=== PATIENT | male | born 1980 | race Hispanic/Latino ===

== ENCOUNTER 2017-04-10 20:34 | Emergency (ER) | payer SELFPAY ==
[2017-04-10] MEDS ORDERED: LIDOCAINE HCL 1% 20 ML VIAL ONE (21:30)
== END 2017-04-10 22:01 | disposition home or self-care (01) ==
LOC: EDH 20:34
DX: L02.211 Cutaneous abscess of abdominal wall (principal); L02.212 Cutaneous abscess of back [any part, except buttock and flank]
CPT/HCPCS: 10061

== ENCOUNTER 2017-07-23 18:34 | Emergency (ER) | payer SELFPAY ==
[2017-07-23] MEDS ORDERED: SULFAMETHOX-TMP DS 800/160 TAB ONE (19:46)
[2017-07-23] MEDS ORDERED: IBUPROFEN 600 MG TABLET ONE (19:47)
== END 2017-07-23 20:07 | disposition home or self-care (01) ==
LOC: EDH 18:34
DX: L02.211 Cutaneous abscess of abdominal wall (principal); Z98.890 Other specified postprocedural states

== ENCOUNTER 2021-05-31 20:29 | Emergency (ER) | payer OTHER ==
[~2021-05-31] VITALS: Ht 175.3 cm; Wt 163.1 kg
[2021-05-31 20:30] VITALS: BP 124/56
[2021-05-31] MEDS ORDERED: ACYC-138 PO (20:48)
[2021-05-31] MEDS ORDERED: NAPR500T6 PO (20:48)
[2021-05-31] MEDS ORDERED: TRAM50TA2 PO (20:58)
== END 2021-05-31 21:48 | disposition home or self-care (01) ==
LOC: EDH 20:29
DX: B02.9 Zoster without complications (principal); M79.672 Pain in left foot; Z79.1 Long term (current) use of non-steroidal anti-inflammatories (NSAID); Z86.16 Personal history of COVID-19
CPT/HCPCS: 73650; 93005

== ENCOUNTER 2021-08-08 15:12 | Emergency (ER) | payer OTHER ==
[~2021-08-08] VITALS: Ht 175.3 cm; Wt 161.9 kg
[~2021-08-08 15:12] MED LIST: ACYC-138 PO; NAPR500T6 PO; TRAM50TA2 PO
[2021-08-08 16:17] LABS: APPEARANCE,URINE Clear (CLEAR); BILIRUBIN,URINE Negative (NEGATIVE); COLOR,URINE Dark Yellow (YELLOW); GLUCOSE, URINE (UA) Negative (NEGATIVE); KETONES,URINE 15 mg/dL (NEGATIVE); LEUKOCYTE ESTERASE ,URINE Trace (NEGATIVE); NITRATE,URINE Negative (NEGATIVE); OCCULT BLOOD,URINE Negative (NEGATIVE); PH,URINE 6.5 (5.0-8.0); PROTEIN,URINE Trace mg/dL (NEGATIVE)
[2021-08-08] MEDS ORDERED: KETOROLAC 30MG VIAL (30MG/ML) IM ONE (16:30)
[2021-08-08 16:46] LABS: BACTERIA,URINE Rare /HPF (None Seen); RBC,URINE 0-1 /HPF (0-1); SQUAMOUS EPITHELIAL CELL,UR Few /HPF (0-2)
[2021-08-08 17:23] LABS: BASOPHILS % (AUTO) 0.2 % (0.0-5.0); EOSINOPHILS % (AUTO) 0.6 % (0.0-8.0); HEMATOCRIT 48.1 % (42-54); LYMPHOCYTES % (AUTO) 14.3 % (21.0-51.0); MEAN CORPUSCULAR HEMOGLOBIN 30.1 pg (27.0-33.0); MEAN CORPUSCULAR HGB CONC 32.6 g/dL (32.0-36.0); MEAN CORPUSCULAR VOLUME 92.3 fL (79-99); PLATELET COUNT (AUTO) 243 K/uL (130-400); RED BLOOD CELL COUNT(AUTO) 5.21 MIL/uL (4.50-6.20); RED CELL DISTRIBUTION WIDTH 12.7 % (11.0-15.5); WHITE BLOOD COUNT (AUTO) 11.2 K/uL (4.8-10.8)
[2021-08-08] MEDS ORDERED: SULFAMETHOX-TMP DS 800/160 TAB PO SCH (17:30)
[2021-08-08 17:32] LABS: CREATININE 1.1 mg/dL (0.5-1.5); POTASSIUM 3.7 mmol/L (3.5-5.1)
[2021-08-08 17:36] LABS: ALBUMIN 3.6 g/dL (3.5-5.0); BILIRUBIN,TOTAL 0.9 mg/dL (0.2-1.0); TOTAL PROTEIN, SERUM 7.9 g/dL (6.0-8.3)
[2021-08-08] MEDS ORDERED: SULF1TAB42 PO (18:32)
[2021-08-08 18:41] VITALS: BP 128/68
== END 2021-08-08 18:45 | disposition home or self-care (01) ==
LOC: EDH 15:12
DX: N49.2 Inflammatory disorders of scrotum (principal); N43.3 Hydrocele, unspecified; Z86.16 Personal history of COVID-19; Z79.1 Long term (current) use of non-steroidal anti-inflammatories (NSAID)
CPT/HCPCS: 36415; 76870; 80053; 81001; 85025; 96372; 99284; J1885

== ENCOUNTER 2023-03-04 18:05 | Emergency (ER) | payer BC, OTHER ==
[~2023-03-04] VITALS: Ht 177.8 cm; Wt 149.7 kg
[~2023-03-04 18:05] MED LIST changes: +SULF1TAB42 PO
[2023-03-04 22:23] LABS: RAPID GROUP A STREP negative (NEGATIVE)
[2023-03-04 22:29] LABS: SARS-CoV-2, RNA, NAAT NEGATIVE SARS CoV-2 (NEGATIVE)
[2023-03-04 22:32] LABS: INFLUENZA TYPE A Negative For Type A (NEGATIVE); INFLUENZA TYPE B Negative For Type B (NEGATIVE)
[2023-03-04] MEDS ORDERED: BENZ-39 PO (22:52)
[2023-03-04] MEDS ORDERED: AZIT500T PO (22:52)
[2023-03-04] MEDS ORDERED: ALBUHFA IH (22:53)
[2023-03-04 23:09] VITALS: BP 124/62; PULSE 72; RESP 18; O2SAT 97
== END 2023-03-04 23:15 | disposition home or self-care (01) ==
LOC: EDH 18:05
DX: J20.9 Acute bronchitis, unspecified (principal); R05.9 Cough, unspecified; F17.200 Nicotine dependence, unspecified, uncomplicated; Z86.16 Personal history of COVID-19; Z20.822 Contact with and (suspected) exposure to COVID-19
CPT/HCPCS: 99283; 71045; 87635; 87880; 87804 ×2; C9803